=== PATIENT | male | born 1970 | race Caucasian/White ===

== ENCOUNTER → 2018-10-10 | Outpatient (CLI) | payer BC, OTHER ==
[~2018-10-10] VITALS: Ht 177.8 cm; Wt 102.1 kg
[~2018-10-10] MED LIST: LIPITOR 20 MG T20 M1 PO; SYNTHROID50 MCG PO
--- NOTE | ~2018-10-10 | PATH ---
[facility] [address] [address] PATHOLOGY RPT PROCEDURE Name: BLANCA BELL Room #: REG NASEEM Fragoso#: [id number] Admission: 10/10/18 Date of : 66 Discharge: Report #: [id number] Path Case #: [id number] [facility] Accession Number: [id number] . 01 Material submitted: . PART A: POLYP AT TRANSVERSE COLON PART B: POLYP AT SIGMOID COLON #1 PART C: POLYP AT SIGMOID COLON #2, X 2 . 01 Clinical history: . Screening, colon polyps, diverticulosis . 02 Diagnosis: A. Polyp, at transverse colon, endoscopic biopsy: - Tubular adenoma. - Negative for high-grade dysplasia. . B. Polyp, at sigmoid, endoscopic biopsy: - Tubulovillous adenoma. - Negative for high-grade dysplasia. . C. Polyp, at sigmoid #2, endoscopic biopsy: - Hyperplastic polyp. - Negative for dysplasia. (IUV:kalyn; 10/11/2018) QMS/10/11/2018 . 02 Electronically signed: . Karolina Albrecht MD, Pathologist NPI- [id number] . 01 Gross description: . A. The specimen is received in formalin, labeled "Blanca Bell, polyp at transverse colon", is a san-brown rubbery sessile polyp measuring 0.8 x x 0.6 x 0.4 cm, inked black, serially sectioned and entirely submitted in A1. . B. The specimen is received in formalin, labeled "Blanca Bell, polyp at sigmoid #1", is a san-brown, rubbery sessile polyp measuring 0.7 x 0.7 x 0.6 cm, inked black, serially sectioned and entirely submitted in B1. . C. The specimen is received in formalin, labeled "Blanca Bell, polyp at sigmoid #2", are several san-brown, rubbery soft tissues and a san-brown plant material measuring 0.6 x 0.5 x 0.1 cm in aggregate, entirely submitted in C1. ([facility]; 10/10/2018) [facility]/[address] [address] PATHOLOGY RPT PROCEDURE Name: BLANAC BELL Room #: REG NASEEM Fragoso#: [id number] Admission: 10/10/18 Date of : 66 Discharge: Report #: [id number] Path Case #: [id number] . 02 Pathologist provided ICD-10: D12.3, D12.5, K63.5 . 02 CPT . 951859, 828634, 673312 Specimen Comment: A courtesy copy of this report has been sent to Specimen Comment: [phone], . Specimen Comment: Report sent to / DR ROGERS Performed at: [address], [place], [place] [id number] MD Homer Tejeda MD Phone: [phone] Performed at: [address] [id number] MD Karolina Albrecht MD Phone: [phone]
== END | disposition home or self-care (01) ==
LOC: GI 06:25
DX: Z12.11 Encounter for screening for malignant neoplasm of colon (principal); D12.3 Benign neoplasm of transverse colon; D12.5 Benign neoplasm of sigmoid colon; K63.5 Polyp of colon; K57.30 Diverticulosis of large intestine without perforation or abscess without bleeding; E78.5 Hyperlipidemia, unspecified; E03.9 Hypothyroidism, unspecified; E66.09 Other obesity due to excess calories; Z79.899 Other long term (current) drug therapy; Z87.19 Personal history of other diseases of the digestive system; Z98.890 Other specified postprocedural states; Z68.32 Body mass index [BMI] 32.0-32.9, adult
CPT/HCPCS: 62110; 62900

== ENCOUNTER → 2021-03-24 | Outpatient (CLI) | payer BC | LOC: RAD 09:44 | PROVIDERS: ATTEND Nurse Practitioner | DX: R05 Cough (principal) ==